=== PATIENT | male | born 1975 | race Native Hawaiian/Other Pacific Islander ===

== ENCOUNTER → 2016-08-12 | Outpatient (CLI) | payer OTHER ==
--- NOTE | ~2016-08-12 | MR17 ---
[facility] A Service of [facility] RADIOLOGY TEXT RESULTS PATIENT: MIGUE AN [facility] 73 UNIT #: [id number] AGE: [address]: zOiel Geronimo MD SEX: M ORDER DR: [id number] [facility] [place] [address] [place], [place] [address] [id number] O MR#: [id number] Acc #: [id number] NAME: MIGUE AN : 1975 SEX: M STUDY DATE/TIME: 08/12/2016 17:27 UNIT: [facility] ROOM: STUDY DESCRIPTION: MR Brain WWo Contrast Attending Physician: Oziel Geronimo M.D. Referring Physician: Oziel Geronimo M.D. Ordering Physician: Oziel Geronimo M.D. Primary Care Physician: Jovany Michaud M.D. MRI CENTER REPORT This report is preliminary unless electronic signature is present. EXAM Brain MR with and without contrast 08/12/2016 COMPARISON None. HISTORY 2-year history of headaches with blurred vision and visual field defects. PROCEDURE Brain MR with and without contrast. FINDINGS The brain is structurally normal, and brain parenchymal signal is within normal limits. There is no hemorrhage, hydrocephalus or extraaxial fluid collection. There are no areas of restricted diffusion. Normal flow voids are seen in the cerebral vessels. There is some slight paranasal sinus mucosal thickening in the ethmoid air cells but the extracranial structures are otherwise unremarkable. Postcontrast images show no evidence of mass or abnormal enhancement. IMPRESSION Mildly motion degraded which may limit sensitivity for more subtle abnormalities. Allowing for that otherwise normal brain MR with and without contrast. Dictated by... Rock Millard M.D. THIS IS AN ELECTRONICALLY VERIFIED REPORT Rock Millard M.D. at 08/15/2016 11:20 AM [facility] A Service [facility] RADIOLOGY TEXT RESULTS PATIENT: MIGUE AN LOCATION: [facility] : 73 UNIT #: [id number] AGE: [address]: Oziel Geronimo MD SEX: M ORDER DR: BRYANNA/amanda TD: 08/13/2016 10:09 JOB #: [id number] MRI CENTER REPORT Page 1 of 1 COPY
[2016-08-12 17:35] LABS: POC - CREATININE 1.06 mg/dL (0.64-1.27); POC - GFR >60.0 mL/min (>60)
== END | disposition home or self-care (01) ==
LOC: CMRI 16:00
PROVIDERS: Ophthalmology
DX: H53.8 Other visual disturbances (principal)
CPT/HCPCS: 70553; 82565; A9577

== ENCOUNTER 2016-09-09 14:17 | Emergency (ER) | payer OTHER ==
--- NOTE | ~2016-09-09 | CR63 ---
[facility] A Service of [facility] RADIOLOGY TEXT RESULTS PATIENT: MIGUE AN LOCATION: [facility] : 73 UNIT #: [id number] AGE: [address]: Louise Mcnair SEX: M ORDER DR: [id number] [facility] [address] [place], [place] [address] [id number] E MR#: [id number] Acc #: [id number] NAME: MIGUE AN : 1975 SEX: M STUDY DATE/TIME: 09/09/2016 14:51 UNIT: [facility] ROOM: STUDY DESCRIPTION: CR Chest 2 View Attending Physician: Louise Mcnair P.A.-C. Ordering Physician: Louise Mcnair P.A.-C. Primary Care Physician: Jovany Michaud M.D. MEDICAL IMAGING REPORT This report is preliminary unless electronic signature is present EXAM PA and lateral chest. HISTORY Cough and shortness of air and congestion and lower chest pain for 1 week. FINDINGS 2 views of the chest were obtained at low lung volumes. There is minimal atelectasis or scarring at the right base. Minimal fluid or pleural thickening at the lateral left base. No airspace infiltrates. IMPRESSION 1. No active disease in the lungs. 2. Minimal fluid or pleural thickening at the lateral left base. Dictated by... Usama Fierro M.D. THIS IS AN ELECTRONICALLY VERIFIED REPORT Usama Fierro M.D. at 09/09/2016 11:05 PM SINDI/katie TD: 09/09/2016 21:30 JOB #: [id number] MEDICAL IMAGING REPORT Page 1 of 1 COPY
[2016-09-09 15:15] LABS: INFLUENZA A NEG (NEG); INFLUENZA B NEG (NEG)
== END 2016-09-09 16:00 | disposition home or self-care (01) ==
LOC: CED 14:17 → CFTX 14:17
PROVIDERS: Physician Assistant
DX: J02.0 Streptococcal pharyngitis (principal); E11.9 Type 2 diabetes mellitus without complications; I10 Essential (primary) hypertension
CPT/HCPCS: 71020; 87804; 87880; 96372; 99284; J0561

== ENCOUNTER 2016-11-29 09:43 | Emergency (ER) | payer OTHER ==
[~2016-11-29] VITALS: Ht 157.5 cm; Wt 104.3 kg
== END 2016-11-29 11:03 | disposition home or self-care (01) ==
LOC: CFTX 09:43 → CED 09:43 → CFTX 10:54
DX: G89.29 Other chronic pain (principal); M54.5 Low back pain; E11.9 Type 2 diabetes mellitus without complications; I10 Essential (primary) hypertension
CPT/HCPCS: 96374; 99283; J1885

== ENCOUNTER 2016-11-30 11:20 | Emergency (ER) | payer OTHER ==
[~2016-11-30] VITALS: Ht 160 cm; Wt 90.7 kg
--- NOTE | ~2016-11-30 | CT4 ---
[facility] A Service of [facility] RADIOLOGY TEXT RESULTS PATIENT: MIGUE AN LOCATION: [facility] : 73 UNIT #: [id number] AGE: [address]: Brayden Toth MD SEX: M ORDER DR: [id number] [address] [address] [id number] E MR#: [id number] Acc #: [id number] NAME: MIGUE AN : 1975 SEX: M STUDY DATE/TIME: 11/30/2016 12:21 UNIT: [facility] ROOM: STUDY DESCRIPTION: CT Abd and Pelv Wo Cont Attending Physician: Brayden Toth M.D. Ordering Physician: Brayden Toth M.D. Primary Care Physician: Jovany Michaud M.D. MEDICAL IMAGING REPORT This report is preliminary unless electronic signature is present EXAM CT abdomen and pelvis without contrast INDICATIONS Left flank pain for the past [address] of the abdomen and pelvis. This CT exam was performed with one or more of the following radiation dose reduction techniques: automatic exposure control, adjustment of mA and/or kV according to patient size, and iterative reconstruction. COMPARISON None FINDINGS Abdomen without contrast: Included lung bases are clear. The liver, spleen, kidneys, adrenal glands, pancreas and gallbladder have an unremarkable unenhanced appearance. Bowel loops are nondilated. Appendix is normal. Pelvis without contrast: No pelvic mass or fluid. No radiodense urinary system calculus or hydronephrosis. No aggressive appearing bone lesion. IMPRESSION No clearly acute finding. No radiodense urinary system calculus or hydronephrosis. Dictated by... Ellis Mckenna M.D. THIS IS AN ELECTRONICALLY VERIFIED REPORT [facility] A Service of [facility] RADIOLOGY TEXT RESULTS PATIENT: MIGUE AN LOCATION: [facility] : 73 UNIT #: [id number] AGE: [address]: Brayden Toth MD SEX: M ORDER DR: Ellis Mckenna M.D. at 11/30/2016 5:00 PM EED/to TD: 11/30/2016 15:17 JOB #: [id number] MEDICAL IMAGING REPORT Page 1 of 1 COPY
[2016-11-30 12:31] LABS: URINE SOURCE CLEAN CATCH
[2016-11-30 12:42] LABS: URBCS1 AUWI 0-2 /[HPF] (0-2); URINE APPEARANCE CLEAR; URINE BACTERIA AUWI NEG (NEGATIVE); URINE BILIRUBIN NEG (NEG); URINE BLOOD NEG (NEG); URINE COLOR YELLOW; URINE GLUCOSE NEG (NEG); URINE KETONE NEG (NEG); URINE LEUKOCYTE ESTERASE NEG (NEG); URINE NITRATE NEG (NEG); URINE PROTEIN 1+ (NEG); URINE SPECIFIC GRAVITY 1.017 (1.003-1.035); URINE SQUAMOUS EPITHELIAL CELL NONE SEEN /[HPF]; URINE UROBILINOGEN 0.2 MG/DL (NEG); UWBCS1 AUWI 0-2 (0-5)
[2016-11-30 12:45] LABS: CULTURE INDICATED? NO
== END 2016-11-30 14:20 | disposition home or self-care (01) ==
LOC: CED 11:20
PROVIDERS: Emergency Medicine
DX: M54.9 Dorsalgia, unspecified (principal); G89.29 Other chronic pain; E11.9 Type 2 diabetes mellitus without complications; I10 Essential (primary) hypertension
CPT/HCPCS: 74176; 81003; 96372; 99284; J1885

== ENCOUNTER 2016-12-06 09:37 | Emergency (ER) | payer OTHER ==
[~2016-12-06] VITALS: Ht 160 cm; Wt 90.7 kg
== END 2016-12-06 11:53 | disposition home or self-care (01) ==
LOC: CED 09:37
DX: J02.0 Streptococcal pharyngitis (principal); I10 Essential (primary) hypertension; E11.9 Type 2 diabetes mellitus without complications
CPT/HCPCS: 87880; 96372; 96374; 99283; J0561